=== PATIENT | female | born 1985 | race Caucasian/White ===

== ENCOUNTER 2019-01-14 07:34 | Inpatient (IN) ==
[2019-01-14] MEDS ORDERED: OXYTOCIN 30 UNITS/500 ML BAG IV PRN ×2 (07:48→20:53)
[2019-01-14] MEDS ORDERED: PENICILLIN G POTASSIUM 6 MU in DEXTROSE 5% 250 ML IV STA (07:48)
[2019-01-14] MEDS ORDERED: DINOPROSTONE 10 MG INSERT PV ONE (07:48)
[2019-01-14] MEDS ORDERED: PATIENT'S ALLERGY INFO NEEDS ENTERED SCH (07:53)
--- NOTE | 2019-01-14 08:11 | History & Physical Report ---
Date of Service January 14, 2019 Assessment & Plan (1) Gestational diabetes mellitus (GDM): 33 yo at 40.1 wks with GDMA1, diet controlled, GBS+ FHR reassuring Cervix unfavorable Plan to admit, monitor, cervical ripening with Cervidil, PCN for GBS All questions were answered Discussed what to expect (2) GBS (group B Streptococcus carrier), +RV culture, currently : History of Present Illness Chief Complaint: Induction Primary Care Provider: Lincoln Rizo DO Patient is a 33 yo at 40.1 wks who is scheduled for IOL at term for GDMA1 She has no complaints No ctxs/ LOF/VB/ GONZALEZ/ Change in vision/ fever/ chills/ CP/SOB +FM's, baby is very active Her has been complicated by 1) GDMA1, diet controlled 2) GBS+ Denies any other medical problems She had US 3 weeks ago and and EFW was 3100 gr. Allergies Allergy/AdvReac Type Severity Reaction Status Date / Time No Known Allergies Allergy Verified 01/14/19 07:58 Patient History OB History FT in 2014 [employer] History No h/o STD's Review of Systems All systems reviewed & are unremarkable except as noted in HPI & below Physical Exam Constitutional: WD/WN, vitals as above well developed and well nourished Respiratory: normal respiratory effort, lungs clear to auscultation normal respiratory effort Auscultation: lungs clear to auscultation bilaterally Cardiovascular: RRR, no murmur, no edema Rate/Rhythm: regular rate and regular rhythm Heart Sounds: normal S1 and normal S2 Gastrointestinal (Abdomen): normal bowel sounds, soft, nontender, no hepatosplenomegaly soft, NT, Gravid, Javier 7-8 lb Genitourinary: normal external appearance Cervix: 1/ thick/ -4, ballotable head Monitoring External Monitor 140's, reactive Tocodynamometer No ctxs
[2019-01-14 08:20] LABS: Hematocrit (blood only) 34.2 % (37-47); Hemoglobin 11.6 g/dL (12.0-16.0); Mean Corpuscular Volume 86.6 fL (80-100); Mean Platelet Volume 10.9 fL (7.4-10.4); Platelet Count 206 K/uL (130-400); RDW Coefficient of Variation 13.2 % (11.5-14.5); RDW Standard Deviation 42.4 fL (36.4-46.3); Red Blood Count 3.95 M/uL (4.2-5.4); White Blood Count 8.17 K/uL (4.8-10.8)
[2019-01-14 08:27] LABS: Mean Corpuscular Hgb Conc 33.9 g/dL (32-36)
[2019-01-14 08:37] LABS: Albumin Level 2.7 gm/dl (3.4-5.0); Calcium 8.8 mg/dl (8.5-10.1); Creatinine Clr Calc Pharmacy 169.6 ml/min; Est GFR (African American) 147.5; Est GFR (Non-African American) 127.2; Potassium 3.8 mmol/L (3.5-5.1)
[2019-01-14 08:40] LABS: Albumin Globulin Ratio 0.8 (0.9-2); Bilirubin,Total 0.3 mg/dl (0.2-1); Globulin 3.5 gm/dl (2.5-4.0); Total Protein 6.2 gm/dl (6.4-8.2)
[2019-01-14] MEDS: LACTATED RINGER'S 1,000 ML IV PRN ×3 (09:09→19:00)
[2019-01-14] MEDS ORDERED: BUTORPHANOL TARTRATE 2 MG/ML VIAL IV PRN (09:16)
[2019-01-14] MEDS ORDERED: ONDANSETRON INJ 2 MG/ML 2 ML VIAL IV PRN ×2 (09:16→17:19)
--- NOTE | 2019-01-14 09:16 | Obstetrical Progress Note ---
Date of Service January 14, 2019 Subjective Cervidil is in Patient is comfortable FHR 130's, good accels+, moderate variability, no decels Discussed what to expect All questions were answered Results & Data Vital Signs (Past 12 Hours) Vital Signs Temp Pulse Resp BP 01/14/19 08:24 37.1 C 18 01/14/19 08:20 88 101/60
[2019-01-14] MEDS: PENICILLIN G POTASSIUM 3 MU in DEXTROSE 5% 100 ML IV PRN ×2 (13:17→17:20)
[2019-01-14] MEDS ORDERED: ACETAMINOPHEN 325 MG TAB PO PRN ×2 (13:32→20:53)
--- NOTE | 2019-01-14 13:44 | Obstetrical Progress Note ---
Date of Service January 14, 2019 Subjective Patient is reevaluated She started to have sciatica pain, got worse when she was walking, better on bed on her side Mild ctxs/ cramping, not painful yet No LOF/VB +FM Receiving 2nd dose of PCN FHR categ I [place]: mild short ctxs q1-4 min Tylenol/ heating pad Stadol if needed Results & Data Vital Signs (Past 12 Hours) Vital Signs Temp Pulse Resp BP 01/14/19 12:28 36.8 C 78 18 118/68 01/14/19 11:18 76 118/73 01/14/19 10:23 36.7 C 75 18 105/58 L 01/14/19 08:24 37.1 C 18 01/14/19 08:20 88 101/60
--- NOTE | 2019-01-14 16:06 | Obstetrical Progress Note ---
Date of Service January 14, 2019 Subjective Patient pain is increasing, 6-7/10 Ctxs q1-3 min VE; 3-4 cm/ 50-60%, -2, AROM'ed, clear fluid, Cervidil is removed FHR categ I [place]: cyxs q 1-3 min Continue to monitor, epidural for pain Results & Data Vital Signs (Past 12 Hours) Vital Signs Temp Pulse Resp BP 01/14/19 15:42 36.7 C 90 18 116/70 01/14/19 12:28 36.8 C 78 18 118/68 01/14/19 11:18 76 118/73 01/14/19 10:23 36.7 C 75 18 105/58 L 01/14/19 08:24 37.1 C 18 01/14/19 08:20 88 101/60
[2019-01-14] MEDS ORDERED: ePHEDrine sulfate 50 MG/ML AMP ONE (16:15)
[2019-01-14] MEDS ORDERED: fentaNYL citrate 100 MCG/2 ML VIAL ONE ×2 (16:15→17:43)
[2019-01-14] MEDS ORDERED: BUPIVACAINE 0.25% 30 ML VIAL ONE ×2 (16:15→17:44)
[2019-01-14] MEDS ORDERED: fentaNYL 2MCG/ML ROPIV 1.25MG/ML 100 ML BAG EPI ONE (16:16)
--- NOTE | 2019-01-14 17:17 | Anesthesiology Consultation ---
Date of Service January 14, 2019 Assessment & Plan Chart Review Chart Review: Acceptable Risk for Surgery and Patient NOT seen in Pre Admission Testing Consults Requested none History Height/Weight Height: 5 ft 4 in Weight: 87.997 kg Allergies Allergy/AdvReac Type Severity Reaction Status Date / Time No Known Allergies Allergy Verified 01/14/19 07:58 Medications Home Medications Medication Instructions Recorded Confirmed Last Taken + DHA 1 cap PO DAILY 01/14/19 01/14/19 01/13/19 22:00 Active Medications Generic Name Dose Route Start Last Admin Trade Name Freq PRN Reason Stop Dose Admin Acetaminophen 650 mg 01/14/19 13:32 01/14/19 14:00 Tylenol PO 02/13/19 13:31 650 mg Q4H PRN Administration Pain Lactated Ringer's 1,000 mls @ 150 mls/hr 01/14/19 07:48 01/14/19 16:55 Lr IV 01/16/19 07:47 Infused .[id number] PRN Infusion L&D Protocol Protocol Penicillin G Potassium 3 mu/ 106 mls @ 100 mls/hr 01/14/19 07:48 01/14/19 13:17 Dextrose IV 01/24/19 07:47 100 mls/hr Q4H PRN Administration Give until delivery Past Medical History Medical History Family history of diabetes mellitus maternal grandfather (believed to be type 2) Past Family History Family History Grandmother (Paternal) Cancer Grandfather (Paternal) Hypertension Stroke Father Hypertension Social History Smoking Status: Never smoker Do You Dip or Chew Tobacco: No Hx Alcohol Use: Yes (when not ) Alcohol type: beer and wine alcohol intake frequency: a few times a week Hx Substance Use: No substance use type: does not use Physical Exam Vital Signs Last Vital Signs Temp 36.9 C 01/14/19 16:23 Pulse 84 01/14/19 17:15 Resp 18 01/14/19 16:23 BP 117/76 01/14/19 17:15 Pulse Ox 98 01/14/19 17:12 Testing Laboratory Results 01/14/19 08:09 01/14/19 08:09 01/14/19 08:08 POC Glucose 92
[2019-01-14] MEDS ORDERED: NALOXONE HCL 1 MG in SODIUM CHLORIDE 0.9% 1000ML 1,000 ML IV PRN (17:19)
[2019-01-14] MEDS ORDERED: NALBUPHINE HCL INJ 10 MG/ML AMP IV PRN (17:19)
[2019-01-14] MEDS ORDERED: NALOXONE HCL 0.4 MG/1 ML VIAL/CARP IV PRN (17:19)
[2019-01-14] MEDS ORDERED: fentaNYL 2MCG/ML ROPIV 1.25MG/ML 100 ML BAG EPI PRN (17:19)
[2019-01-14] MEDS ORDERED: DiphenhydrAMINE HCL 50 MG/ML VIAL IV PRN (17:19)
[2019-01-14] MEDS ORDERED: ePHEDrine sulfate 50 MG/ML AMP IV PRN (17:19)
[2019-01-14] MEDS ORDERED: MEASLES, MUMPS & RUBELLA VIRUS VIAL SQ ONE (20:53)
[2019-01-14] MEDS ORDERED: OXYCODONE/ACETAMINOPHEN 5mg/325mg TAB PO PRN (20:53)
[2019-01-14] MEDS ORDERED: BENZOCAINE 20% AER SPR 82.5 GM CAN EXT PRN (20:53)
[2019-01-14] MEDS ORDERED: HYDROCORTISONE ACETATE 25 MG SUPP PR PRN (20:53)
[2019-01-14] MEDS ORDERED: BISACODYL 10 MG SUPP PR PRN (20:53)
[2019-01-14] MEDS ORDERED: DIPHTHERIA/TETANUS/PERTUSSIS 0.5 ML SYR/VIAL IM ONE (20:53)
[2019-01-14] MEDS ORDERED: SUPERCREAM 0.870% 15 GM JAR EXT PRN (20:53)
[2019-01-14] MEDS ORDERED: LACTATED RINGER'S 1,000 ML IV SCH (21:00)
--- NOTE | 2019-01-14 22:17 | Anesthesia Procedure Note ---
Date of Service January 14, 2019 Anesthesia Post Epidural Note Vital Signs Vital Signs: Temp Pulse Resp BP Pulse Ox 37.0 C 105 H 18 117/87 96 01/14/19 20:55 01/14/19 22:15 01/14/19 21:55 01/14/19 22:15 01/14/19 20:47 Notes Mental Status: alert / awake / arousable Nausea / Vomiting: adequately controlled Pain: adequately controlled Airway Patency, RR, SpO2: stable & adequate BP & HR: stable & adequate Hydration State: stable & adequate Neuraxial Anesthesia: was administered and sensory block is resolving Anesthetic Complications: no major complications apparent and Pt Satisfied with anesthetic care Epidural: Removed without complications and With tip intact
[2019-01-15] MEDS: IBUPROFEN 600 MG TAB PO PRN ×3 (06:01→19:36)
[2019-01-15 06:38] LABS: Hematocrit (blood only) 32.9 % (37-47); Hemoglobin 11.1 g/dL (12.0-16.0); Mean Corpuscular Hgb Conc 33.7 g/dL (32-36); Mean Corpuscular Volume 86.6 fL (80-100); Mean Platelet Volume 11.1 fL (7.4-10.4); Platelet Count 196 K/uL (130-400); RDW Coefficient of Variation 13.3 % (11.5-14.5); RDW Standard Deviation 42.5 fL (36.4-46.3); White Blood Count 11.84 K/uL (4.8-10.8)
[2019-01-15] MEDS ORDERED: PRENATAL VITAMIN 1 TAB PO SCH (08:00)
[2019-01-15] MEDS ORDERED: FERROUS SULFATE 325 MG TAB PO SCH (08:00)
[2019-01-15] MEDS: DOCUSATE SODIUM 100 MG CAP PO SCH ×2 (08:21→19:19)
--- NOTE | 2019-01-15 09:20 | Delivery Summary ---
DATE OF OPERATION: 01/14/2019 TIME OF DELIVERY OF BABY: 2035 p.m. TIME OF DELIVERY OF PLACENTA: 2048 p.m. DETAILS OF DELIVERY: The patient was found to be fully dilated and desired to push. She pushed for about 7 minutes and delivered the head and the shoulders with the same push. Baby was handed off to the mother where mouth and nose were suctioned. Cord was clamped x2 and cut at 1 minute delay, and then cord blood was obtained. Vagina and perineum were checked for lacerations. They were intact. No lacerations were found. The placenta was found to be in the vagina, delivered spontaneously as intact and complete. Uterus was explored, found to be empty. Lower segment was cleared of all clots and debris. Fundus was firm. EBL was 200 mL. Mom and baby tolerated the procedure well. Sponge, lap and instrument count was correct x2. Baby was a viable female infant, Apgars 9/10. No complications happened. I was present during the whole procedure. I attest to the content of the Intraoperative Record and any orders documented therein. Any exceptions are noted below. MTDD
--- NOTE | 2019-01-15 10:44 | Obstetrical Progress Note ---
Date of Service January 15, 2019 Physical Exam Physical Exam: abdomen soft and non tender vaginal bleeding scant to moderate no calf tenderness hgb 11.1 ambulating well Results & Data Vital Signs (Past 12 Hours) Vital Signs Temp Pulse Pulse Resp BP BP 01/15/19 07:45 36.8 C 86 16 122/85 01/15/19 03:15 36.7 C 73 18 112/78 01/14/19 22:57 95 H 118/69 01/14/19 22:55 37.6 C H 18 01/14/19 22:46 141 H 135/59 L
[2019-01-15] MEDS ORDERED: MEASLES, MUMPS & RUBELLA VIRUS VIAL SQ ONE (19:02)
[2019-01-15] MEDS ORDERED: BISACODYL 5 MG TABEC PO SCH (20:00)
== END 2019-01-15 21:40 | disposition home or self-care (01) | DRG 807 ==
LOC: 4S1 07:34 → 4S2 23:24